=== PATIENT | male | born 1995 | race Caucasian/White ===

== ENCOUNTER 2018-08-31 09:27 | Emergency (ER) | payer MEDICAID ==
[~2018-08-31] VITALS: Ht 190.5 cm; Wt 77.3 kg
[2018-08-31 09:30] VITALS: Ht 190.5 cm; Wt 77.3 kg
[2018-08-31] MEDS ORDERED: KEFLEX500 MG PO (11:01)
[2018-08-31] MEDS ORDERED: PHENERGAN DM SYR5 ML PO (11:01)
[2018-08-31 11:20] VITALS: BP 118/60
== END 2018-08-31 11:23 | disposition home or self-care (01) ==
LOC: D.ER 09:27
DX: J06.9 Acute upper respiratory infection, unspecified (principal)